=== PATIENT | female | born 1975 | race Caucasian/White ===

== ENCOUNTER → 2019-08-14 | Outpatient (CLI) | payer OTHER ==
[~2019-08-14] MED LIST: COLACE100 MG PO; HYDROCODONE-AP1 EAC6 PO; IBUPROFEN 600600 M1 PO; SINGULAIR 10 MG10 M1 PO; WOMEN'S DAILY1 EAC1 PO; ZYRTEC10 M5 PO
== END ==
LOC: CAT 13:23
DX: Z13.6 Encounter for screening for cardiovascular disorders (principal); I25.10 Atherosclerotic heart disease of native coronary artery without angina pectoris; E78.00 Pure hypercholesterolemia, unspecified

== ENCOUNTER → 2020-04-07 | Outpatient (CLI) | payer OTHER | LOC: LAB 13:20 | PROVIDERS: ATTEND Neuromusculoskeletal Medicine & OMM | DX: J02.9 Acute pharyngitis, unspecified (principal); M79.10 Myalgia, unspecified site; Z20.828 Contact with and (suspected) exposure to other viral communicable diseases ==